=== PATIENT | female | born 1960 ===

== ENCOUNTER 2025-08-01 06:20 | Day surgery (SDC) | payer OTHER, SELFPAY ==
[2025-08-01 10:20] LABS: Glucose - Point of Care 86 mg/dl (70-99)
== END 2025-08-01 12:54 | disposition home or self-care (01) ==
LOC: GI 06:20
PROVIDERS: ATTENDING PHYSICIAN Internal Medicine
DX: Z12.11 Encounter for screening for malignant neoplasm of colon (principal); K55.20 Angiodysplasia of colon without hemorrhage; D12.3 Benign neoplasm of transverse colon; D12.0 Benign neoplasm of cecum; D12.4 Benign neoplasm of descending colon; K63.5 Polyp of colon; K52.9 Noninfective gastroenteritis and colitis, unspecified; Z80.0 Family history of malignant neoplasm of digestive organs; Z86.0100 Personal history of colon polyps, unspecified
CPT/HCPCS: 45385; 45380; 82962; 88305